=== PATIENT | male | born 1980 | race Caucasian/White ===

== ENCOUNTER → 2017-11-22 | Outpatient (CLI) | payer BC ==
[~2017-11-22] MED LIST: ASPI-586 PO; HYOS0.1217 PO; MELO-195 PO; NF-ESOM40C PO; OMG1KC PO; OXYC-12 PO; PANT40SU PO; PANT40TA3 PO; PNT40TEC PO; SUCR1TAB PO; SUCR1TAB36 PO
== END ==
LOC: CARD 10:32
PROVIDERS: ATTEND Nurse Practitioner Family
DX: R07.9 Chest pain, unspecified (principal)
CPT/HCPCS: 93005

== ENCOUNTER → 2017-11-28 | Outpatient (CLI) | payer BC ==
--- NOTE | 2017-11-28 15:56 | Diagnostic Imaging Report ---
PROCEDURE: US carotid duplex, bilateral. TECHNIQUE: Multiple real-time grayscale images were obtained over the carotid arteries in various projections, bilaterally. Additional duplex Doppler and color Doppler images were also obtained. INDICATION: Atrial enlargement, chest pain. COMPARISON: There are no prior studies available for comparison. FINDINGS: There is mild hard and soft plaque formation in both carotid systems. The flow velocities fail to show any sign of a hemodynamically significant stenosis of the common or internal carotid arteries. Both vertebral arteries were noted, and there was antegrade flow bilaterally. IMPRESSION: There is mild atherosclerotic disease involving both carotid systems. There is no evidence for a hemodynamically significant stenosis of the common or internal carotid arteries, however. Parameters based on the consensus panel [employer] and Doppler ultrasound criteria published April 2003, Radiology, Volume 229. DOPPLER (peak systolic velocity M/S Right Left CCA .82 .82 ICA Proximal .80 .71 ICA Mid .69 .75 ICA Distal .64 .74 RATIO 1.0 .9 ECA 1.01 .92 VERT .46 .32 Dictated by: Dictated on workstation # [id number]
== END ==
LOC: RAD 13:09
PROVIDERS: ATTEND Family Medicine
DX: I65.23 Occlusion and stenosis of bilateral carotid arteries (principal); R07.9 Chest pain, unspecified
CPT/HCPCS: 93306; 93880

== ENCOUNTER 2017-12-05 11:09 | Outpatient (CLI) | payer BC ==
[~2017-12-05] VITALS: Ht 180.3 cm; Wt 92.1 kg
[~2017-12-05 11:09] MED LIST changes: -ASPI-586 PO; -OMG1KC PO; -PANT40TA3 PO; -SUCR1TAB36 PO
[2017-12-05] MEDS ORDERED: PANT40TA3 PO (12:32)
[2017-12-05] MEDS ORDERED: OMG1KC PO (12:32)
[2017-12-05] MEDS ORDERED: ASPI-586 PO (12:32)
[2017-12-06] MEDS ORDERED: SUCR1TAB36 PO (14:12)
== END 2017-12-05 12:33 ==
LOC: PREOP 11:09
PROVIDERS: ATTEND Surgery
DX: Z01.818 Encounter for other preprocedural examination (principal); K21.9 Gastro-esophageal reflux disease without esophagitis

== ENCOUNTER 2017-12-06 11:02 | Day surgery (SDC) | payer BC ==
[~2017-12-06] VITALS: Ht 180.3 cm; Wt 92.1 kg
[~2017-12-06 11:02] MED LIST changes: +ASPI-586 PO; +OMG1KC PO; +PANT40TA3 PO
[2017-12-06 11:05] VITALS: BP 118/80
[2017-12-06] MEDS ORDERED: NS IV 500 ML 500 ML ONE (11:11)
[2017-12-06] MEDS ORDERED: NS IV 500 ML 500 ML IV PRN (11:43)
[2017-12-06] MEDS ORDERED: HYDROcodone/APAP 5 MG/325 MG (LORTAB) TAB PO PRN (11:45)
[2017-12-06] MEDS ORDERED: ONDANSETRON 4 MG/2 ML (SDV) Z0FRAN IV PRN (11:45)
[2017-12-06] MEDS ORDERED: ACETAMINOPHEN 325 MG TABLET/CAPLET (TYLENOL) PO PRN (11:45)
[2017-12-06] MEDS ORDERED: morphine INJ 10 MG/ML 1ML (SYR OR VIAL) IV PRN (11:45)
--- NOTE | 2017-12-06 11:45 | Conscious Sedation/ASA ---
Conscious Sedation Pre-Proced Time Reviewed: 11:30 ASA Class: 2 Airway Mallampati Classification: (pala appropriate class) I. II. III, IV Lungs Heart ASA score ASA 1: a normal healthy patient ASA 2: a patient with a mild systemic disease (mid diabetes, controlled hypertension, obesity ASA 3: a patient with a severe systemic disease that limits activity (angina , COPD, prior Myocardial infarction) ASA 4: a patient with an incapacitating disease that is a constant threat to life (CHF, renal failure) ASA 5: a moribund patient not expected to survive 24 hrs. (ruptured aneurysm) ASA 6: a declared brain patient whose organs are being harvested. For emergent operations, add the letter E after the classification Grade 2 Sedation Plan: Analgesia, Amnesia, Plan communicated to team members, Discussed options with patient/fam, Discussed risks with patient/fam Note The patient is an appropriate candidate to undergo the planned procedure, sedation, and anesthesia. The patient immediately re-assessed prior to indication. JIMMY SANABRIA MD Dec 06, 2017 11:44 am
--- NOTE | 2017-12-06 11:45 | Progress Note-Pre Operative ---
Pre-Operative Progress Note H&P Reviewed The H&P was reviewed, patient examined and no changes noted. Date Seen by Provider: Dec 06, 2017 Time Seen by Provider: 11:30 Date H&P Reviewed: Dec 06, 2017 Time H&P Reviewed: :30 Pre-Operative Diagnosis: JIMMY TABARES MD Dec 06, 2017 11:45 am
[2017-12-06] MEDS ORDERED: MIDAZOLAM 2 MG/2 ML (VERSED) VIAL ONE ×4 (12:48→12:49)
[2017-12-06] MEDS ORDERED: LIDOCAINE JELLY 2% (XYLOCAINE) 5 ML TUBE ONE (12:48)
[2017-12-06] MEDS ORDERED: fentaNYL INJECTION 100 MCG/2 ML AMP ONE (12:48)
[2017-12-06] MEDS ORDERED: HURRICAINE EXT TUBE (BENZOCAINE) ONE (12:49)
[2017-12-06] MEDS: MIDAZOLAM 2 MG/2 ML (VERSED) VIAL IVP PRN ×3 (13:05→13:11)
[2017-12-06] MEDS: fentaNYL INJECTION 100 MCG/2 ML AMP IVP PRN ×2 (13:06→13:09)
[2017-12-06 13:55] VITALS: BP 111/75
--- NOTE | 2017-12-06 14:11 | Progress Note-Post Operative ---
Post-Operative Progess Note Surgeon (s)/Oracle Software Engineer (s) Surgeon JIMMY SANABRIA MD Oracle Software Engineer: NONE Pre-Operative Diagnosis GERD Post-Operative Diagnosis reflux esophagitis(class B), small HH(1cm), moderate gastritis. Procedure & Operative Findings Date of Procedure 12/06/17 Procedure Performed/Findings EGD with bx. Anesthesia Type CS Estimated Blood Loss Estimated blood loss (mL): minimal Specimens/Packing Specimens Removed GE jxn, antrum JIMMY SANABRIA MD Dec 06, 2017 2:11 pm
[2017-12-06] MEDS ORDERED: SUCR1TAB36 PO (14:12)
--- NOTE | 2017-12-06 14:13 | Discharge Inst-Surgical ---
D/C Lap Instructions-KIDO New, Converted, or Re-Newed RX: RX on Chart Follow Up Appt in 4 weeks Activity as tolerated High Fiber Diet 25g or more per day Avoid Alcohol, Caffeine, Spicy [place] and Acid foods. Drink 64 fluid oz or more of fluids per day. Symptoms to Report: Fever over 101 degree F, Nausea/Vomiting If any problems/questions: Contact your physician or go to Emergency Room JIMMY SANABRIA MD Dec 06, 2017 2:13 pm
[2017-12-06 14:20] VITALS: BP 114/88
[2017-12-06 14:30] VITALS: BP 114/88
--- NOTE | 2017-12-06 21:00 | OPERATIVE REPORT ---
DATE OF SERVICE: 12/06/2017 ATTENDING PRIMARY CARE PHYSICIAN: Dr. Butler. PREOPERATIVE DIAGNOSIS: Recurrent gastroesophageal reflux disease. POSTOPERATIVE DIAGNOSES: Reflux esophagitis class B, no hiatal hernia, moderate gastritis. PROCEDURE: EGD with biopsy. SURGEON: Dr. Sanabria. ANESTHESIA: Conscious sedation. ESTIMATED BLOOD LOSS: Minimal. FINDINGS: Reflux esophagitis class B. No significant hiatal hernia, moderate gastritis. DISPOSITION: The patient tolerated the procedure well. INDICATIONS: The patient is a 36-year-old male known to us. He was initially seen in 09/2012 for substernal pain as well as epigastric pain. An EGD was performed and he did have a reflux esophagitis as well as gastritis. He continued to have symptoms and then he underwent a HIDA scan, which showed a very low ejection fraction of 11% consistent with biliary dyskinesia. He underwent a laparoscopic cholecystectomy. He has been on Protonix; however, states that approximately 1 month ago he has had worsening reflux type of symptoms with epigastric burning sensation despite taking Protonix daily. DESCRIPTION OF PROCEDURE: The patient was brought to the endoscopy suite, laid in the left lateral decubitus position. After adequate IV pain and sedative medications and conscious sedation anesthesia, the mouthpiece was applied. Endoscope was placed in the mouth, visualizing the pharynx and hypopharyngeal region. Vocal cords, epiglottis and vallecula identified and appeared to be normal. The endoscope was then gently intubated at the esophageal opening and esophagus insufflated. The endoscope was then advanced to the first, second and third portion of the esophagus at the level of the GE junction, a reflux esophagitis class B identified. There were no ulcers or any strictures identified in this region. A biopsy was taken with forceps with visualization of good hemostasis. Endoscope was then advanced into the stomach and endoscope retroflexed visualizing no significant sized hiatal hernia, a small one at best might have been identified. There was moderate severity gastritis as well as the increased melba folds of the stomach. There were no ulcers, polyps or any neoplasms. A biopsy was taken of the antrum with visualization of good hemostasis. The endoscope was then advanced to the pylorus and the first and second portion of the duodenum, which appeared normal and no distal obstructions. The endoscope was then slowly withdrawn while taking a second look and suctioning of residual air with no additional findings. The patient tolerated the procedure well. We will have him continue with medical management with the necessary lifestyle and diet accommodation including small and more frequent meals, avoidance of eating at night as well as head elevation while lying supine. He also needs to proceed with cessation of a cigar smoke as well as alcoholic beverages. We will have him continue with the Protonix and also add Carafate. We do have a very low index of suspicion of possible gastrinoma and we will proceed with gastrin level as well as a serum calcium. Job ID: [id number] DocumentID: [id number] Dictated Date: 12/06/2017 13:37:29 Welding Machine Assembler Date: 12/06/2017 21:00:03 Dictated By: JIMMY SANABRIA MD
== END 2017-12-06 14:30 | disposition home or self-care (01) ==
LOC: ENDO 11:02
PROVIDERS: ATTEND Surgery
DX: K21.0 Gastro-esophageal reflux disease with esophagitis (principal); K29.60 Other gastritis without bleeding; Z79.82 Long term (current) use of aspirin
CPT/HCPCS: 36415; 82310; 82941; 88305

== ENCOUNTER → 2018-04-25 | Outpatient (CLI) | payer BC ==
[~2018-04-25] MED LIST changes: +SUCR1TAB36 PO
== END ==
LOC: CARD 13:48
PROVIDERS: ATTEND Internal Medicine Cardiovascular Disease
DX: R07.89 Other chest pain (principal); I65.29 Occlusion and stenosis of unspecified carotid artery; I34.0 Nonrheumatic mitral (valve) insufficiency; R06.02 Shortness of breath; Z82.49 Family history of ischemic heart disease and other diseases of the circulatory system
CPT/HCPCS: 93017

== ENCOUNTER 2020-02-28 05:33 | Outpatient (RCR) | payer BC ==
[~2020-02-28] VITALS: Ht 180.3 cm; Wt 97.0 kg
[~2020-02-28 05:33] MED LIST changes: +AMIT25TA9 PO; +FAMO10TA43 PO
== END 2020-02-28 12:19 | disposition home or self-care (01) ==
LOC: PREOP 05:33
PROVIDERS: ATTEND Surgery
DX: Z01.812 Encounter for preprocedural laboratory examination (principal); Z20.828 Contact with and (suspected) exposure to other viral communicable diseases
CPT/HCPCS: 87635

== ENCOUNTER 2020-03-04 08:14 | Day surgery (SDC) | payer BC ==
[2020-03-04] VITALS (10 sets, daily range): BP systolic 105–125; BP diastolic 58–81
[~2020-03-04] VITALS: Ht 180.3 cm; Wt 97.0 kg
[2020-03-04] MEDS ORDERED: NS IV 500 ML 500 ML ONE (09:33)
[2020-03-04] MEDS ORDERED: NS IV 500 ML 500 ML IV PRN (09:46)
[2020-03-04] MEDS ORDERED: fentaNYL INJECTION 100 MCG/2 ML AMP IVP ONE (10:00)
[2020-03-04] MEDS ORDERED: LIDOCAINE JELLY 2% 6 ML SYRINGE MM PRN (10:00)
[2020-03-04] MEDS ORDERED: HURRICAINE EXT TUBE (BENZOCAINE) XX PRN (10:00)
--- NOTE | 2020-03-04 10:22 | Conscious Sedation/ASA ---
Conscious Sedation Pre-Proced Time 10:00 ASA Score 2 For ASA 3 and 4: Consider anesthesia and medical clearance. Also, for patients with a history of failed moderate sedation consider anesthesia. Airway Lungs Heart ASA score ASA 1: a normal healthy patient ASA 2: a patient with a mild systemic disease (mid diabetes, controlled hypertension, obesity ASA 3: a patient with a severe systemic disease that limits activity (angina, COPD, prior Myocardial infarction) ASA 4: a patient with an incapacitating disease that is a constant threat to life (CHF, renal failure) ASA 5: a moribund patient not expected to survive 24 hrs. (ruptured aneurysm) ASA 6: a declared brain- patient whose organs are being harvested. For emergent operations, add the letter E after the classification Mallampati Classification Grade 2 Sedation Plan Analgesia, Amnesia, Plan communicated to team members, Discussed options with patient/fam, Discussed risks with patient/fam The patient is an appropriate candidate to undergo the planned procedure, sedation, and anesthesia. The patient immediately re-assessed prior to indication. JIMMY SANABRIA MD Mar 04, 2020 10:22
--- NOTE | 2020-03-04 10:23 | Progress Note-Pre Operative ---
Pre-Operative Progress Note H&P Reviewed The H&P was reviewed, patient examined and no changes noted. Date Seen by Provider: Mar 04, 2020 Time Seen by Provider: 10:00 Date H&P Reviewed: Mar 04, 2020 Time H&P Reviewed: 10:00 Pre-Operative Diagnosis: JIMMY TABARES MD Mar 04, 2020 10:23
[2020-03-04] MEDS ORDERED: OMEP40CA27 PO (10:26)
--- NOTE | 2020-03-04 10:26 | Discharge Inst-Surgical ---
D/C Lap Instructions-KIDO New, Converted, or Re-Newed RX: RX on Chart Follow Up Activity as tolerated High Fiber Diet 25g or more per day Avoid Alcohol, Caffeine, Spicy [place] and Acid foods. Drink 64 fluid oz or more of fluids per day. Symptoms to Report: Fever over 101 degree F, Nausea/Vomiting If any problems/questions: Contact your physician or go to Emergency Room JIMMY SANABRIA MD Mar 04, 2020 10:26
[2020-03-04] MEDS ORDERED: HYDROcodone/APAP 5 MG/325 MG (LORTAB) TAB PO PRN (10:30)
[2020-03-04] MEDS ORDERED: ACETAMINOPHEN 325 MG TABLET PO PRN (10:30)
[2020-03-04] MEDS ORDERED: morphine INJ 10 MG/ML 1ML (SYR OR VIAL) IVP PRN ×2 (10:30)
[2020-03-04] MEDS ORDERED: ONDANSETRON 4 MG/2 ML (SDV) Z0FRAN IVP PRN (10:30)
[2020-03-04] MEDS ORDERED: LIDOCAINE JELLY 2% 6 ML SYRINGE ONE (11:36)
[2020-03-04] MEDS ORDERED: MIDAZOLAM 5 MG/5 ML (VERSED) VIAL ONE ×2 (11:37→11:42)
[2020-03-04] MEDS ORDERED: fentaNYL INJECTION 100 MCG/2 ML AMP ONE ×2 (11:37→11:42)
[2020-03-04] MEDS: MIDAZOLAM 5 MG/5 ML (VERSED) VIAL IV PRN ×3 (11:40→11:54)
--- NOTE | 2020-03-04 12:14 | Progress Note-Post Operative ---
Post-Operative Progess Note Surgeon (s)/Net Web Developer (s) Surgeon JIMMY SANABRIA MD Net Web Developer: none Pre-Operative Diagnosis GERD Post-Operative Diagnosis reflux esophagitis(stage 2), small HH(2cm), mild-mod gastritis, mild duodenitis. Procedure & Operative Findings Date of Procedure 03/04/20 Procedure Performed/Findings EGD with bx. Anesthesia Type cs Estimated Blood Loss Estimated blood loss (mL): minimal Specimens/Packing Specimens Removed ge jxn, antrum, duo JIMMY SANABRIA MD Mar 04, 2020 12:14
--- NOTE | 2020-03-04 14:47 | OPERATIVE REPORT ---
DATE OF SERVICE: ATTENDING PRIMARY CARE PHYSICIAN: Shakira Butler DO PREOPERATIVE DIAGNOSIS: Persistent gastroesophageal reflux disease. POSTOPERATIVE DIAGNOSES: Reflux esophagitis stage II, small hiatal hernia approximately 2 cm in size, mild to moderate gastritis, and mild duodenitis. PROCEDURE PERFORMED: EGD with biopsy. SURGEON: Jimmy Sanabria MD. ANESTHESIA: Conscious sedation. ESTIMATED BLOOD LOSS: Minimal. FINDINGS: Same as postoperative diagnoses. DISPOSITION: The patient tolerated the procedure well. INDICATIONS FOR PROCEDURE: The patient is a 39-year-old male known to us. We had initially seen him in 2012 for similar symptoms of reflux. We had done an EGD on him and he was found to have a mild reflux esophagitis as well as gastritis. He continued to be symptomatic. We did a HIDA scan and it did show a low ejection fraction of 11% consistent with a biliary dyskinesia and he underwent a laparoscopic cholecystectomy. We had seen him again in 2018 for recurrent epigastric burning sensation despite being on a proton pump inhibitor and he underwent an EGD and again found to have a reflux esophagitis stage II, moderate gastritis and biopsies negative for H. pylori as well as negative for Phelan's esophagus. We had then referred him to gastroenterology where he underwent an esophageal manometry study, which was essentially normal with no signs of an esophageal dysmotility. He then underwent a 24-hour pH probe, which showed a pH less than 4 in the upright position at 0.9%, which was normal and a DeMeester score normal at 2.6. He states that he lost some weight; however, regained approximately 25 pounds back despite diet and exercise. DESCRIPTION OF PROCEDURE: The patient was brought to the endoscopy suite and laid in the left lateral decubitus position. After adequate IV pain and sedative medications and conscious sedation anesthesia, the mouthpiece was applied. The endoscope was then placed in the mouth, visualizing the pharynx and hypopharyngeal region. Vocal cords, epiglottis and vallecula identified and appeared to be normal. The endoscope was then gently intubated, the esophageal opening and esophagus insufflated. The endoscope was then advanced to the first, second and third portion of esophagus. At the level of the GE junction, a reflux esophagitis stage II identified. There were no ulcers or strictures identified in this region. A biopsy was taken with forceps with visualization of good hemostasis. The endoscope was then advanced in the stomach and endoscope retroflexed, visualizing a small hiatal hernia approximately 2 cm in size. There was a mild to moderate gastritis. No formal ulcerations, polyps or any neoplasms. A biopsy was taken of the antrum to rule out H. pylori with visualization of good hemostasis. The endoscope was then advanced to the pylorus and the first and second portion of the duodenum, where a mild duodenitis was identified. The endoscope was then slowly withdrawn while taking a second look and suctioning of residual air with no additional findings. The patient tolerated the procedure well. We are unsure of the etiology of his significant reflux type of symptoms as well as his weight gain; however, we will continue with medical management for now. He is currently on Protonix 40 mg daily as well as Pepcid and we will discontinue the Pepcid and replace that with omeprazole 40 mg daily. We will also proceed with a trial of an aluminum containing antacid like Mylanta to see if her symptoms are relieved after taking it, which may indicate a bile acid reflux esophagitis. There is also mild duodenitis also identified, which may indicate some level of food allergy and he may benefit from referral to gastroenterology speciality that deals with this. Job ID: [id number] DocumentID: [id number] Dictated Date: 03/04/2020 12:10:33 Laborer Orchard Date: 03/04/2020 14:47:15 Dictated By: JIMMY SANABRIA MD
== END 2020-03-04 12:50 | disposition home or self-care (01) ==
LOC: ENDO 08:14
PROVIDERS: ATTEND Surgery
DX: K21.0 Gastro-esophageal reflux disease with esophagitis (principal); K44.9 Diaphragmatic hernia without obstruction or gangrene; K29.70 Gastritis, unspecified, without bleeding; K29.80 Duodenitis without bleeding; F17.290 Nicotine dependence, other tobacco product, uncomplicated; Z79.899 Other long term (current) drug therapy; Z88.8 Allergy status to other drugs, medicaments and biological substances
CPT/HCPCS: 88305

== ENCOUNTER → 2022-02-24 | Outpatient (CLI) | payer BC ==
[~2022-02-24] MED LIST changes: +OMEP40CA6 PO; -PANT40TA3 PO; +PANT40TA52 PO
--- NOTE | 2022-02-24 17:07 | Diagnostic Imaging Report ---
INDICATION: R06.09, R07.89, R06..02. Difficulty breathing, worsening over the past year. TECHNIQUE: Two view chest 5:03 PM CORRELATION STUDY: 09/11/2012 FINDINGS: The heart size, mediastinal configuration and pulmonary vasculature are within normal limits. The lungs are clear with no consolidating infiltrate. There is no significant pleural effusion or pneumothorax. Visualized osseous structures are unremarkable. IMPRESSION: 1. Negative for acute abnormality of the chest. Dictated by: Dictated on workstation # [id number]
== END ==
LOC: RAD 16:42
PROVIDERS: ATTEND Family Medicine
DX: R06.02 Shortness of breath (principal); R07.89 Other chest pain
CPT/HCPCS: 71046

== ENCOUNTER 2023-02-19 20:05 | Emergency (ER) | payer BC ==
[~2023-02-19] VITALS: Ht 180.3 cm; Wt 93.0 kg
[2023-02-19 20:45] VITALS: BP 151/101
[2023-02-19] MEDS ORDERED: NS IV 1000 ML 1,000 ML IV STA (20:58)
[2023-02-19] MEDS ORDERED: Tetanus/Diphtheria/Pertussis (Acell) ADULT Vaccine 0.5 ML IM ONE (21:00)
[2023-02-19] MEDS ORDERED: morphine INJ 4 MG/ML 1 ML (VIAL/SYRINGE) IVP ONE (21:00)
[2023-02-19] MEDS ORDERED: ONDANSETRON INJECTION 4 MG/2 ML (SDV) IVP ONE (21:00)
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
[2023-02-19 21:18] LABS: BASOPHILS % (AUTO) 0 % (0-10); EOSINOPHILS # (AUTO) 0.3 10^3/uL (0.0-0.3); EOSINOPHILS % (AUTO) 4 % (0-10); HEMATOCRIT 42 % (40-54); HEMOGLOBIN 14.8 g/dL (13.3-17.7); LYMPHOCYTES # (AUTO) 2.8 10^3/uL (1.0-4.0); LYMPHOCYTES % (AUTO) 41 % (12-44); MEAN CORPUSCULAR HEMOGLOBIN 32 pg (25-34); MEAN CORPUSCULAR HGB CONC 35 g/dL (32-36); MEAN CORPUSCULAR VOLUME 90 fL (80-99); MEAN PLATELET VOLUME 8.7 fL (9.0-12.2); MONOCYTES # (AUTO) 0.4 10^3/uL (0.0-1.0); MONOCYTES % (AUTO) 6 % (0-12); NEUTROPHILS # (AUTO) 3.3 10^3/uL (1.8-7.8); NEUTROPHILS % (AUTO) 49 % (42-75); PLATELET COUNT 300 10^3/uL (130-400); WHITE BLOOD COUNT 6.8 10^3/uL (4.3-11.0)
[2023-02-19 21:28] LABS: ALBUMIN 4.7 GM/DL (3.2-4.5); CHLORIDE 110 MMOL/L (98-107); POTASSIUM 4.2 MMOL/L (3.6-5.0); SODIUM 141 MMOL/L (135-145)
[2023-02-19 21:29] LABS: CALCIUM 9.7 MG/DL (8.5-10.1)
[2023-02-19 21:30] LABS: GLUCOSE 84 MG/DL (70-105)
[2023-02-19 21:31] LABS: TOTAL PROTEIN 8.3 GM/DL (6.4-8.2)
[2023-02-19 21:32] LABS: BILIRUBIN,TOTAL 0.4 MG/DL (0.1-1.0); CARBON DIOXIDE 17 MMOL/L (21-32)
[2023-02-19 21:34] LABS: ALKALINE PHOSPHATASE 51 U/L (40-136); GFR ESTIMATED 97
[2023-02-19 21:35] LABS: BUN/CREATININE RATIO 9
[2023-02-19 21:37] LABS: ALANINE AMINOTRANSFERASE 31 U/L (0-55)
--- NOTE | 2023-02-19 21:45 | Diagnostic Imaging Report ---
CHEST 1 VIEW, AP/PA ONLY Indication: Shortness of breath Comparison: 02/24/2022 Findings: No focal airspace disease in the visualized lungs. No pleural effusion or pneumothorax. Normal cardiomediastinal silhouette. Impression: 1. No acute cardiopulmonary process by portable radiography. Dictated by: Dictated on workstation # [id number]
[2023-02-19] MEDS ORDERED: PANTOPRAZOLE INJECTION 40 MG VIAL IV ONE (22:00)
[2023-02-19] MEDS ORDERED: CALCIUM CARBONATE 500 MG CHEW TABLET PO ONE (22:00)
[2023-02-19] MEDS ORDERED: ACHD5005 PO (22:43)
[2023-02-19] MEDS ORDERED: BACI28.4 TP (22:59)
== END 2023-02-19 23:05 | disposition home or self-care (01) ==
LOC: EDUNIT# 20:05 → ER 20:07
DX: T23.232A Burn of second degree of multiple left fingers (nail), not including thumb, initial encounter (principal); T20.10XA Burn of first degree of head, face, and neck, unspecified site, initial encounter; X04.XXXA Exposure to ignition of highly flammable material, initial encounter
CPT/HCPCS: 36415; 71045; 80053; 85025; 90715